=== PATIENT | female | born 1990 | race Caucasian/White ===

== ENCOUNTER 2016-12-06 17:46 | Emergency (ER) | payer MEDICARE, MEDICAID ==
[2016-12-06 17:58] VITALS: BP 104/69
--- NOTE | 2016-12-06 18:04 | UC ---
Hand/Wrist HPI - History Of Current Complaint Chief Complaint: UCUpperExtremity Stated Complaint: LFT HAND PAIN Hx Obtained From: Patient Hx Last Menstrual Period: 11/20/16 ?: No Onset/Duration: Sudden Onset, Lasting Weeks - 1, Worse Since - down though the hand into the 3rd finger. Severity Initially: Mild Severity Currently: Mild Character Of Pain: Throbbing - stabbing Aggravating Factor(s): Movement, Flexion Alleviating: Nothing Associated Signs And Symptoms: Positive: Swelling - at the kauffman base of the 3rd finger. Related History: Dominant Hand Right - Allergies/Home Medications Allergies/Adverse Reactions: Allergies Allergy/AdvReac Type Severity Reaction Status Date / Time Latex Allergy Blisters Verified 12/06/16 17:51 Gadoteridol AdvReac Nausea And Verified 12/06/16 17:51 Vomiting Home Medications: Home Medications Diclofenac Sodium EC TAB* [Voltaren EC TAB*] 75 mg PO BID PRN 12/06/16 [History Confirmed 12/06/16] PMH/Surg Hx/FS Hx/Imm Hx Psychological History: Anxiety Other History Of: Hepatitis C - Surgical History Surgical History: Yes Surgery Procedure, Year, and Place: D&C 02/2013 - Family History Known Family History: Negative: Cardiac Disease, Hypertension, Diabetes - Social History Occupation: Unemployed Lives: Alone - with BF Alcohol Use: Rare Alcohol Amount: 1 drink/month Substance Use Type: None Substance Use Comment - Amount & Last Used: opiates and benzo found in urine drug screen- pt denies today. Smoking Status (MU): Heavy Every Day Tobacco Smoker Type: Cigarettes Amount Used/How Often: 1 pack daily When Did the Patient Quit Smoking/Using Tobacco: 2007 Cessation Counseling: Patient Advised to Stop - Immunization History Most Recent Influenza Vaccination: unknown Most Recent Tetanus Shot: unknown Most Recent Pneumonia Vaccination: unknown Review of Systems Musculoskeletal: Arthralgia - left wrist into the hand All Other Systems Reviewed And Are Negative: Yes Physical Exam Triage Information Reviewed: Yes Appearance: Well-Appearing, No Pain Distress, Well-Nourished Vital Signs: Initial Vital Signs Temp 98 F 12/06/16 17:53 Pulse 74 12/06/16 17:53 Resp 16 12/06/16 17:53 BP 104/69 12/06/16 17:53 Pulse Ox 99 12/06/16 17:53 Vital Signs Reviewed: Yes Eyes: Positive: Conjunctiva Clear ENT Exam: Normal Neck exam: Normal Respiratory Exam: Normal Cardiovascular Exam: Normal Musculoskeletal: Positive: ROM Intact, Strength Limited @ - pick and shovel man left hand, Other: - Tenderness with swelling 3rd and 4th volar fingers over the MCPs Neurological: Positive: Other: - Hypersensitive to pinprick over the 3rd and 4th volar fingers and Psychological Exam: Normal Skin Exam: Normal Hand/Wrist Course/Dx - Differential Dx/Diagnosis Differential Diagnosis/HQI/PQRI: Bursitis, Sprain, Strain, Tendonitis Provider Diagnoses: Neuritis/ neuralgia Discharge - Discharge Plan Condition: Stable Disposition: HOME Patient Education Materials: Paresthesia (ED) Additional Instructions: It appears to be a nerve irritation in the hand. This should resolve spontaneously. Please avoid doing anything that makes the pain worse. Use the pamela wrap to remind you to not use the hand.
== END 2016-12-06 18:36 | disposition home or self-care (01) ==
LOC: UCCORT 17:46
DX: M79.2 Neuralgia and neuritis, unspecified (principal); F17.210 Nicotine dependence, cigarettes, uncomplicated
CPT/HCPCS: 99211; G0463

== ENCOUNTER 2018-01-26 11:14 | Emergency (ER) | payer MEDICARE, MEDICAID ==
[2018-01-26 11:48] VITALS: BP 102/63
--- NOTE | 2018-01-26 13:07 | UC ---
UC General HPI - HPI Summary HPI Summary: pt is c/o pain to the sides of her lower back and bladder discomfort/pressure. she admits to frequent-urgent urination but denies any burning or odor to her urine. this began about 1 week ago but is worsening since last pm. she denies and fever, v/d and vaginal d/c plus risk/concern for pelvic infection. did have a large L ovarian cyst removed by Dr Poole 3-4 months ago. - History of Current Complaint Chief Complaint: UCGU Stated Complaint: BILATERAL SIDE PAIN Time Seen by Provider: 01/26/18 12:28 Hx Obtained From: Patient Hx Last Menstrual Period: 01/18/18 Onset/Duration: Gradual Onset Timing: Constant Pain Intensity: 7 Aggravating: movement Associated Signs & Symptoms: Positive: Abdominal Pain, Back Pain. Negative: Diarrhea, Fever, Vomiting - Allergy/Home Medications Allergies/Adverse Reactions: Allergies Allergy/AdvReac Type Severity Reaction Status Date / Time gadoteridol Allergy Nausea And Verified 01/26/18 11:43 Vomiting latex Allergy Blisters Verified 01/26/18 11:43 Home Medications: Home Medications Acetaminophen [Tylenol Extra Strength] 1,000 mg PO ONCE 01/26/18 [History Confirmed 01/26/18] busPIRone TAB* [Buspar TAB*] 5 mg PO BID PRN 01/26/18 [History Confirmed ] PMH/Surg Hx/FS Hx/Imm Hx - Additional Past Medical History Additional PMH: large L ovarian cyst-removed, pituitary tumor. 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 Lives: With Family Alcohol Use: Occasionally Alcohol Amount: 1 drink/month Substance Use Type: None Substance Use Comment - Amount & Last Used: history of heroin abuse Smoking Status (MU): Heavy Every Day Tobacco Smoker Type: Cigarettes Amount Used/How Often: 1 pack daily When Did the Patient Quit Smoking/Using Tobacco: 2007 - Immunization History Most Recent Influenza Vaccination: unknown Most Recent Tetanus Shot: unknown Most Recent Pneumonia Vaccination: unknown Vaccination Up to Date: Yes Review of Systems Constitutional: Negative Skin: Negative Eyes: Negative ENT: Negative Respiratory: Negative Cardiovascular: Negative Gastrointestinal: Abdominal Pain Genitourinary: Frequency, Urgency Motor: Negative Neurovascular: Negative Musculoskeletal: Other: - low back pain Neurological: Negative Psychological: Negative Is Patient Immunocompromised?: No All Other Systems Reviewed And Are Negative: Yes Physical Exam Triage Information Reviewed: Yes Appearance: Well-Appearing Vital Signs: Initial Vital Signs Temp 98.1 F 01/26/18 11:40 Pulse 70 01/26/18 11:40 Resp 18 01/26/18 11:40 BP 102/63 01/26/18 11:40 Pulse Ox 100 01/26/18 11:40 Vital Signs Reviewed: Yes Eyes: Positive: Conjunctiva Clear ENT: Positive: Normal ENT inspection Neck: Positive: Supple, Nontender, No Lymphadenopathy Respiratory: Positive: Lungs clear, Normal breath sounds Cardiovascular: Positive: RRR, No Murmur Abdomen Description: Positive: Other: - Flat, + BS, soft, No mass or HSM appreciated. Tender with guarding to suprapubic and L lower abdomen. Musculoskeletal: Positive: ROM Intact Neurological: Positive: Alert Psychological: Positive: Age Appropriate Behavior Skin Exam: Normal Diagnostics - Laboratory Diagnostic Studies Completed/Ordered: u/a= 1+ leukocytes and + nitrites. HCG= negative Course/Dx - Course Course Of Treatment: no CVA tenderness or fever to suggest pyelonephritis. u/a has leukocytes and nitires to suggest UTI; however, the abdominal exam is not c/ w basic UTI thus pt transfer to ER for additonal evaluation. [facility] ER called, spoke to Nilda Acosta .NET PROGRAMMER, advised of uti but also lower abdominal pain with guarding. also advised of hx large L ovarian cyst removal 3-[address] Poole. - Differential Dx - Multi-Symptom Provider Diagnoses: Lower abdominal pain. UTI. Discharge - Sign-Out/Discharge Documenting (check all that apply): Patient Departure - Discharge Plan Condition: Stable Disposition: TRANS HIGHER LVL OF CARE FAC Referrals: Ana Stewart PA [Primary Care Provider] - Additional Instructions: LEAVE HERE AND GO DIRECTLY TO THE [facility] ER DISCUSSED. DO NOT EAT OR DRINK. - Billing Disposition and Condition Condition: STABLE Disposition: Trans Higher Lvl of Care Fac
--- NOTE | 2018-01-28 09:08 | UC ---
- Progress Note Progress Note: + e. Coli Pt on Macrobid await culture no change Ljj 01/28/2018 Discharge - Sign-Out/Discharge Documenting (check all that apply): Post-Discharge Follow Up - Discharge Plan Condition: Stable Disposition: TRANS HIGHER LVL OF CARE FAC Referrals: Ana Stewart PA [Primary Care Provider] - Additional Instructions: LEAVE HERE AND GO DIRECTLY TO THE [facility] ER DISCUSSED. DO NOT EAT OR DRINK. - Billing Disposition and Condition Condition: STABLE Disposition: Trans Higher Lvl of Care Fac
--- NOTE | 2018-01-28 11:29 | UC ---
- Progress Note Progress Note: + E coli sensitive to macrobid Pt on macrobid per [facility] following transfer to ED no change in management Magno 01/28/2018 Discharge - Sign-Out/Discharge Documenting (check all that apply): Post-Discharge Follow Up - Discharge Plan Condition: Stable Disposition: TRANS HIGHER LVL OF CARE FAC Referrals: Ana Stewart PA [Primary Care Provider] - Additional Instructions: LEAVE HERE AND GO DIRECTLY TO THE [facility] ER DISCUSSED. DO NOT EAT OR DRINK. - Billing Disposition and Condition Condition: STABLE Disposition: Trans Higher Lvl of Care Fac
== END 2018-01-26 13:02 | disposition short-term general hospital (02) ==
LOC: UCCORT 11:14
DX: R10.30 Lower abdominal pain, unspecified (principal); N39.0 Urinary tract infection, site not specified; B96.20 Unspecified Escherichia coli [E. coli] as the cause of diseases classified elsewhere; F17.210 Nicotine dependence, cigarettes, uncomplicated; F41.9 Anxiety disorder, unspecified
CPT/HCPCS: 81003; 84702; 87077; 87086; 87186; 99212; G0463

== ENCOUNTER 2018-10-18 07:44 | Inpatient (IN) | payer MEDICARE, MEDICAID ==
[2018-10-18] MEDS ORDERED: Buffered Lidocaine 1% SYRIN* 1 ML/SYRINGE INTRADERM ONE (09:03)
[2018-10-18] MEDS ORDERED: Lactated Ringers 1000 ML Bag* 1,000 ML IV ONE (09:03)
[2018-10-18] MEDS ORDERED: Misoprostol TAB* 100 MCG PO ONE ×2 (09:03→14:20)
[2018-10-18] MEDS ORDERED: Nicotine GUM* 2 MG PO PRN (09:10)
--- NOTE | 2018-10-18 09:31 | HP ---
General Information - Reason for Visit IOL for Proteinuria - General Information Maternal Age: 27 Grav: 4 Para: 1 SAB: 2 IEA: 0 Estimated Due Date: 10/25/18 Determined By: LMP Maternal Blood Type and Rh: O Positive - Results this Serology/RPR Result: Non-Reactive Rubella Result: Non-Immune HBsAg Result: Negative HIV Result: Negative GBS Culture Result: Negative Past Medical History Delivery History: Hx Uncomplicated Vaginal Delivery Pertinent Past Medical History: See Records Past Medical History Comment: History substance abuse, negative toxicology screen this . Not on medication Depression - no current meds, celexa in past Anxiety - using hydroxyzine prn Migraine Schizophrenia PTSD Pertinent Past Surgical History: See Records Past Surgical History Comment: Laparascopic ovarian cystectomy - 2018 D&C- 2012 [place] Tooth Extraction Pertinent Family History: Non-Contributory - Antepartal Records Antepartal Records: Reviewed, Complicated by: - Proteinuria Review of Systems Constitutional: Uncomfortable CV Complaint: No Respiratory: Shortness of Breath: No Gastrointestinal: Nausea, Vomiting, Soft Stool Genitourinary: No Dysuria, No Bleeding, No Leaking Fluid Musculoskeletal: Abdominal Pain, Pressure Neurological: No Headache, Blurred Vission - yesterday Movement: Normal Exam Allergies/Adverse Reactions: Allergies gadoteridol Allergy (Verified 09/26/18 19:36) Nausea And Vomiting latex Allergy (Verified 09/26/18 19:36) Blisters B/P: 105/66, P: 89, R: 20, T: 97.9 - Measurements Pre- Weight: 150 lb - Exam Breast: Breast Exam Deferred CVA: No CVA Tenderness Extremities: No Edema Heart: Normal Rhythm/Heart Sounds HEENT: No Significant Findings Lungs: Clear Bilaterally Thyroid: No Thyromegaly - Abdominal Exam Abdomen Exam: Non-Tender, Fundal Height Consistent with Dates - Ultrasound/Biophysical Profile Ultrasound Status: Not Done Targeted Exam Findings See L&D Outpatient Visit Provider Note for Findings: N/A Estimated Weight: 9 lb by kingsley'martina Cervical Exam: Fingertip Effacement: Thick Station: -2 Presenting Part: Vertex Membrane Status: Intact Bleeding/Discharge: None EFM Findings - External Monitor Findings Baseline Heart Rate: 135 External Monitor Findings: Accelerations Present, No Pattern of Variable or Late Decelerations, Variability Moderate, Baseline Stable Contractions: None Assessment/Plan - Assessment A: IUP at 39 0/7 weeks Category I FHR GBS negative Franco Score: 4 P: Admit to inpatient Cervical ripening with oral cytotec Reassess in 3-4 hrs or sooner as indicated Anticipate SVB - Obstetrical Risk Factors Obstetrical Risk Factors: Proteinuria, Tobacco Use, Psychiatric Issues - Plan Plan: Cervical Ripening, Admit - Anticipate Vaginal Delivery - Date/Time of Admission Date of Admission: 10/18/18 Time of Admission: 08:00
[2018-10-18] MEDS ORDERED: Lactated Ringers 1000 ML Bag* 1,000 ML IV SCH (10:00)
[2018-10-18] MEDS: Nicotine PATCH 14 MG/24 HR* PATCH TRANSDERM SCH (10:30)
--- NOTE | 2018-10-18 14:28 | PN ---
Progress Note - Progress Note Date of Service: 10/18/18 Note: S: Brittnee in left lateral position on bed, states she can feel UCs but they are mild and tolerable. Reports aching in her hips and back, uncomfortable changing positions O: B/P: 117/74, P: 90, R: 20, T: 97.8 FHR: baseline 125, moderate variability, +accelerations, no decelerations UCs: q8-10 minutes, irregular, mild VE: fingertip, thick/soft, posterior. Membranes intact A: IUP at 39 weeks Category I FHR Cervix unripe P: Will do another PO cytotec Discussed her getting in the tub to see if it makes her back and hips feel better Reassess in 3-4 hrs or sooner as needed
[2018-10-18] MEDS ORDERED: Dinoprostone* 10 MG VAG.SUPP VAGINAL ONE (19:10)
--- NOTE | 2018-10-18 19:26 | PN ---
Progress Note - Progress Note Date of Service: 10/18/18 SOAP: Subjective: Pt reports that she feels some ctx now, but that they are still relatively mild and intermittent. Does report continued hip and low back pain. Denies headache. Denies vision changes. Objective: Cervix: fingertip/ 50%/ posterior Franco Score = 3 FHR: baseline 130/ + accels/ no decels/ moderate variability UCs: Every 10 minutes Assessment: Cervix slightly more favorable than at previous assessment, but still not favorable for Pitocin. No evidence of acidemia. Plan: Discussed options for proceeding with pt. Given that she has had two doses of misoprostol with minimal effect, it seems reasonable to try Cervidil. Pt in agreement with plan, although she would like to walk and rest in room uninterrupted for a little while before placing. Will consider sleep aid or pain relief overnight if needed.
--- NOTE | 2018-10-18 20:52 | PN ---
Progress Note - Progress Note Date of Service: 10/18/18 Note: Pt has stated history of pituitary adenoma. Attempted to obtain neurology consult for pt during but was unable to obtain, although she has an appt scheduled in November. Pt reports diagnosed at age 18, states it has remained stable in size, and was diagnosed prior to her first during which she had an epidural without complication. I spoke with anesthesiologist Dr. Zhang who requested I consult with neurology prior to consideration of pt's candidacy for epidural placement should she request it during her labor. 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 Spoke with welder production line combination neurologist Dr. Valdez, and reviewed the pt's stated history of pituitary adenoma as well as migraine headaches, and read the report from the above-referenced MRI. Per Dr. Valdez, in the absence of neurological deficits such as vision changes such as hemianopeia or severe headaches, there is no contraindication whatsoever to the pt receiving epidural analgesia in labor. He states he would be happy to discuss further should it be necessary.
[2018-10-18] MEDS: Acetaminophen TAB* 325 MG PO PRN (21:36)
[2018-10-18] MEDS: diPHENhydraMINE PO* 50 MG PO PRN (21:36)
[2018-10-19 06:51] LABS: ABS Basophils 0 10^3/ul (0-0.2); ABS Eosinophils 0.1 10^3/ul (0-0.6); ABS Lymphocytes 2.2 10^3/ul (1.0-4.8); ABS Monocytes 0.8 10^3/ul (0-0.8); ABS Neutrophils 6.3 10^3/ul (1.5-7.7); ABS Nucleated RBC 0 10^3/ul; Eosinophil % 1.4 %; Hematocrit 37 % (33-41); Hemoglobin 12.1 g/dL (12.0-16.0); Lymphocyte % 23.5 %; Mean Corpuscular HGB Conc 33 g/dL (31-36); Mean Corpuscular Hemoglobin 26 pg (27-31); Mean Corpuscular Volume 79 fL (80-97); Mean Platelet Volume 8.8 fL (7.4-10.4); Nucleated Red Blood Cells % 0; Platelet Count 183 10^3/uL (150-450); Red Blood Count 4.68 10^6 /uL (3.70-4.87); Red Cell Distribution Width 14 % (10.5-15); White Blood Count 9.4 10^3/uL (3.5-10.8)
[2018-10-19 07:03] LABS: Albumin 3.3 g/dL (3.2-5.2); Albumin/Globulin Ratio 1.3 (1-3); Calcium 8.8 mg/dL (8.6-10.3); EGFR African American 181.9 (>60); EGFR Non-African American 150.3 (>60); Globulin 2.5 g/dL (2-4); Potassium 3.9 mmol/L (3.5-5.0); Total Bilirubin 0.3 mg/dL (0.2-1.0); Total Protein 5.8 g/dL (6.4-8.9); Uric Acid 2.7 mg/dL (2.3-6.6)
[2018-10-19] MEDS: Nicotine Patch Removal NOTE FOLLOW UP SCH (08:40)
[2018-10-19] MEDS: Nicotine PATCH 14 MG/24 HR* PATCH TRANSDERM SCH (08:41)
--- NOTE | 2018-10-19 08:48 | PN ---
Progress Note - Progress Note Date of Service: 10/19/18 Note: S: Brittnee is just waking up, reports she got some sleep last night but has been feeling pressure in her pelvis. Some relief in tub last night but only for first 15 minutes. O: B/P: 102/59, P: 79, R: 17, T: 97.8 FHR: baseline 130, moderate variability, +accelerations, no decelerations UCs: q5-8 min, mild VE: FT/thick/posterior A: IUP at 39 1/7 weeks Category I FHR Franco Score: 3-4 P: Will leave cervidil in place, pt to eat breakfast Discussed vaginal irritation from cervidil, offered tucks or lidocaine gel - pt declines Offered heat packs for sore hips/back, pt declined at first but then accepted Re-assess in 2-4 hrs or sooner PRN
[2018-10-19] MEDS ORDERED: Misoprostol TAB* 100 MCG PO ONE ×3 (10:01→19:55)
--- NOTE | 2018-10-19 10:10 | PN ---
Progress Note - Progress Note Date of Service: 10/19/18 Note: Quick note: Spoke with Brittnee about plan of care now that she is feeling fully awake. She would like to trial another dose of oral misoprostol as she finds the Cervidil uncomfortable. She is also interested in having her saline lock removed, understands she will likely end up with another IV and accepting of this. She will remove her Cervidil after she finishes breakfast and then we will switch to 25 mcg misoprostol PO.
[2018-10-19] MEDS: Acetaminophen TAB* 325 MG PO PRN ×2 (12:20→23:02)
--- NOTE | 2018-10-19 15:23 | PN ---
Progress Note - Progress Note Date of Service: 10/19/18 Note: S: right side-lying position, feeling UCs but states they are milder and seem to have spaced out some. Still uncomfortable moving around in bed. O: B/P: 100/61, P: 91, R: 18, T: 99.0 FHR: baseline 145, moderate variability, +accelerations, no decelerations UCs: q8-10 mins, mild VE: 1/50/-2 A: IUP at 39 1/7 weeks Category I FHR Franco Score: 5 P: Repeat dose of sublingual misoprostol Reassess in 3-4 hrs or sooner as needed Anticipate SVB
--- NOTE | 2018-10-19 18:09 | PN ---
Progress Note - Progress Note Date of Service: 10/19/18 Note: S: Reports increased vaginal pressure with UCs, pt breathing heavily through contractions O: FHR baseline 105-110, moderate variability, +accelerations, no decelerations. Lots of movement UCs: q 4-6 minutes, moderate to palpation VE: 50/-2, intact A: IUP at 39 1/7 weeks Category I FHR - baseline change P: will continue to monitor FHR and contraction pattern reassess in 2 hours or sooner PRN
--- NOTE | 2018-10-19 20:00 | PN ---
Progress Note - Progress Note Date of Service: 10/19/18 Note: S: Lying in bed, reports everything is painful O: B/P: 118/67, P: 73, R: 18, T: 98.2 FHR: Baseline 120, moderate variability, + accelerations, no decelerations UCs: q3-9 minutes, irregular, mild-moderate VE deferred per pt preference A: IUP at 39 1/7 weeks Category I FHR, no evidence of metabolic acidemia P: Discussed options for moving forward with ripening: Misoprostol vs cervidil vs paula bulb vs trial of pitocin. Pt declines all except misoprostol at this time. Repeat oral misoprostol 25 mcg (third dose today, fifth total dose) Reassess in 3-4 hrs or sooner as indicated
[2018-10-20] MEDS ORDERED: Promethazine INJ(RESTRICTED)* 25 MG/ML 1 ML VIAL IM ONE
[2018-10-20] MEDS ORDERED: Nalbuphine* 10 MG/ML 1 ML VIAL IM PRN (00:08)
--- NOTE | 2018-10-20 00:14 | PN ---
Progress Note - Progress Note Date of Service: 10/20/18 Note: S: Reports she hasn't noticed UCs the last hour. Lying right side-lying O: B/P: 93/52, P: 73, R: 19, T: 98.2 FHR: baseline 120, moderate variability, + accelerations, no decelerations UCs: no UCs by toco VE: deferred A: IUP at 39 2/7 weeks Category I FHR GBS Negative P: Offered pt option of sixth dose misoprostol vs cervidil vs therapeutic rest Brittnee opts to rest and re-evaluate in morning. Requests Benadryl for sleep , has option for Nubain/phenergan IM if she desires Reassess in am or sooner as needed
[2018-10-20] MEDS: diPHENhydraMINE PO* 50 MG PO PRN (00:15)
[2018-10-20] MEDS: Nicotine Patch Removal NOTE FOLLOW UP SCH ×2 (04:52→22:33)
--- NOTE | 2018-10-20 09:52 | PN ---
Progress Note - Progress Note Date of Service: 10/20/18 Note: Subjective: Pt reports she has not felt contractions since 3am. Feeling irritable, asking for nicotine patch. Denies RUBIN, vision changes, epigastric pain, edema. Objective: Cervix: 1cm/ 30%/-2, soft, posterior Franco Score = 4, unfavorable FHR: baseline 115/moderate variability, periods of marked variability UCs: uterine irritability Assessment: BP stable, afebrile Cervix slightly more favorable than at previous assessment, but still not favorable for Pitocin. No evidence of acidemia. Plan: Discussed options for proceeding with pt. Discussed risks vs benefits of cervidil vs misoprostol. Pt was uncomfortable with cervidil and would like to try misoprostol again. Anticipate progression to active labor
[2018-10-20] MEDS: Nicotine PATCH 14 MG/24 HR* PATCH TRANSDERM SCH (10:32)
[2018-10-20] MEDS: Misoprostol TAB* 100 MCG PO SCH ×3 (10:36→22:45)
--- NOTE | 2018-10-20 14:16 | PN ---
Progress Note - Progress Note Date of Service: 10/20/18 Note: Subjective: Pt was given misoprostol, 50mcg at 1030am. Pt is sleeping soundly. Objective: VS, FHR reported with last note Assessment: Cervical exam deferred Pt comfortable Plan: Repeat next dose of misoprostol Anticipate progression to active labor
[2018-10-20] MEDS ORDERED: Lidocaine 2% JELLY* 6 ML JELLY TOPICAL ONE (15:43)
--- NOTE | 2018-10-20 16:18 | PN ---
Progress Note - Progress Note Date of Service: 10/20/18 Note: ubjective: Pt is out of bed playing video game with SO. Not feeling contractions. Denies RUBIN , vision changes, epigastric pain. Objective: FHR:120, moderate to marked variability Ctx: irritability Assessment: Cervical exam deferred No evidence of acidemia Pt comfortable Plan: PARQ discussion about cervical ripening balloon. Pt would like to try. Will order lidocaine to help ease insertion Anticipate progression to active labor
--- NOTE | 2018-10-20 16:48 | PN ---
Progress Note - Progress Note Date of Service: 10/20/18 Note: Assessed pt for placement of Cooks catheter. Cx 1cm, posterior. Catheter threaded through cervix and balloon inflated with 50ml saline. placement confirmed and external balloon filled with 30ml saline. Pt tolerated the procedure well.
--- NOTE | 2018-10-20 18:41 | PN ---
Progress Note - Progress Note Date of Service: 10/20/18 Note: Subjective: Pt is feeling mild contractions. Objective: FHR: indeterminate baseline, moderate to marked variability Ctx: irritability Assessment: Cervical exam deferred Cook paula in place No evidence of acidemia Pt comfortable Plan: Pt tolerating cook paula balloon well VE prn Anticipate progression to
[2018-10-20] MEDS ORDERED: Promethazine INJ(RESTRICTED)* 25 MG/ML 1 ML VIAL IM PRN (20:37)
--- NOTE | 2018-10-20 20:50 | PN ---
Progress Note - Progress Note Date of Service: 10/20/18 Note: Subjective: Pt is uncomfortable with contractions. Objective: VE: unable to reach cervix d/t cook catheter firmly in place FHR: 115, +accels, no decels, periods of marked variability - otherwise moderate variability Ctx: q2-4mins Assessment: Cook catheter in place No evidence of acidemia Plan: Consider IM pain medication Pt tolerating cook paula balloon well VE prn Anticipate progression to
[2018-10-20] MEDS ORDERED: Nalbuphine* 10 MG/ML 1 ML VIAL IV PRN (21:49)
[2018-10-20] MEDS ORDERED: Promethazine INJ(RESTRICTED)* 25 MG/ML 1 ML VIAL IV SCH (22:00)
[2018-10-21] MEDS ORDERED: Lidocaine 1%* 5 ML VIAL ONE (03:05)
--- NOTE | 2018-10-21 03:57 | PN ---
Progress Note - Progress Note Date of Service: 10/21/18 Note: Subjective: Called to bedside by RN for low baseline. Per RN, pt reported feeling uncomfortable, this prompted RN to resume continuous monitoring. When I arrived pt was in left lateral, RN hanging IV fluids and applying O2. Jax Romero (LMB) MD called to bedside to review FHT. Objective: VE: d/c cook catheter; 1cm/70%/-2, bloody show Bedside US completed by LMB. +FCA, active movement FHR: baseline 100-110, occasional variable decel, moderate variability. Following interventions, baseline 115, +accels, no decels, moderate variability. Ctx: occasional Assessment: IV fluids infusing 10L of O2 flowing via face mask Pt remains in left lateral No evidence of acidemia Plan: Continuos monitoring of FHR and contractions Consider trial of Pitocin in the AM. VE prn Anticipate progression to active labor
[2018-10-21] MEDS: Misoprostol TAB* 100 MCG PO SCH (07:28)
--- NOTE | 2018-10-21 08:03 | PN ---
Progress Note - Progress Note Date of Service: 10/21/18 Note: Called to evaluate patient and heart strip around 3:15am. She was placed on the monitor and baseline was 100-110 with moderate variability, no accels, no decels. She had a cook catheter in place that had been removed due to discomfort by the curtain stitcher. She had received nubain and phenergan about 5hrs prior. Pain improved s/p removal of catheter. Very minimal bloody show. No LOF. On evaluation of her FHT, her baseline had been 115-120 throughout the day with good variability and accels. Bedside sono was done and baby quickly had lots of movement. Placenta appeared normal. heart monitor was started again and baseline was now 115-120 with accels. Reassured pt and will continue to monitor overnight and re-eval in the am.
--- NOTE | 2018-10-21 10:43 | PN ---
Progress Note - Progress Note Date of Service: 10/21/18 Note: S: Still feeling achey through hips, reports charley horse in her left thigh. Feeling some UCs "but not as many as last night" O: B/P: 85/49, P: 75, R: 18, T: 97.8 FHR: baseline 120, moderate variability, +accelerations, no decelerations UCs: irregular. No UCs by toco but one palpated in 20 minutes while at bedside VE: 1 cm/thick/-2, membranes intact A: IUP at 39 3/7 weeks Category I FHR Not in labor P: Discussed pitocin augmentation, pt hesitant to move forward at this time and asking about other options Offered to consult about discharge for now and follow-up in the office, pt interested as long as not too risky Discussed there is never a 100% guarantee of no risk, but baby's BPP last night was reassuring and both she and baby are stable at this time Plan to discharge to home, to follow-up in office 10/22 or 10/25
--- NOTE | 2018-10-25 17:25 | DS ---
Patient is a 27 year old who presented for term induction of labor for proteinuria unaccompanied by other symptoms. She was admitted 10/18/2018 and received six doses of misoprostol for cervical ripening, as well as a cervidil/dinoprostone vaginal insert and attempt at ripening with Cook uterine/vaginal balloon. Her blood pressure readings had all been normal and her CBC, CMP, and uric acid results were unremarkable. She denied neurologic symptoms but did report occasional headache which had been present throughout the majority of her . Headache was relieved with PO tylenol. On cervical exam done 10/21/2018 she was 1 cm, 50% effaced, vertex -2 station and membranes intact. There had been little change to her cervix over the last 40 hours. She had received a bedside ultrasound overnight and findings indicated wellbeing ( movements, tone, breathing movements, normal JIMMY, normal appearance of the placenta) A trial of IV pitocin for labor induction was discussed with the patient however she requested to go home and await spontaneous labor. After discussion with my consulting bankruptcy attorney, it was determined she could be discharged to home with follow up in the office 10/22/2018. She has been rescheduled for repeat induction of labor on 10/26/2018 at 1200. She was discharged to home at 1130 on at 39 and 3/7 weeks gestation following a reactive non-stress test and heart tracing with normal baseline.
== END 2018-10-21 11:05 | disposition home or self-care (01) | DRG 833 ==
LOC: MCHOBOUT 07:44 → MCHOB 09:21
PROVIDERS: ADMIT Midwife; ATTEND Midwife
PROC: 3E033VJ Introduction of Other Hormone into Peripheral Vein, Percutaneous Approach (ICD-10-PCS; principal; 2018-10-18)
DX: O12.13 Gestational proteinuria, third trimester (principal); O61.0 Failed medical induction of labor; Z3A.39 39 weeks gestation of pregnancy; O99.343 Other mental disorders complicating pregnancy, third trimester; F41.9 Anxiety disorder, unspecified; F20.9 Schizophrenia, unspecified; F43.10 Post-traumatic stress disorder, unspecified; G43.909 Migraine, unspecified, not intractable, without status migrainosus; F32.9 Major depressive disorder, single episode, unspecified
CPT/HCPCS: 36415; 80053; 84550; 85025; 86850; 86900; 86901; A9270-GY; J2300; J2550; S0191

== ENCOUNTER 2018-10-26 08:42 | Inpatient (IN) | payer MEDICARE, MEDICAID ==
[2018-10-26] MEDS ORDERED: Lactated Ringers 1000 ML Bag* 1,000 ML IV ONE ×2 (10:11→15:15)
[2018-10-26] MEDS ORDERED: Buffered Lidocaine 1% SYRIN* 1 ML/SYRINGE INTRADERM ONE (10:11)
--- NOTE | 2018-10-26 10:19 | HP ---
General Information - Reason for Visit Term for induction/augmentation of labor. - General Information Maternal Age: 27 Grav: 4 Para: 1 SAB: 2 IEA: 0 Estimated Due Date: 10/25/18 Determined By: LMP Maternal Blood Type and Rh: O Positive - Results this Serology/RPR Result: Non-Reactive Rubella Result: Non-Immune HBsAg Result: Negative HIV Result: Negative GBS Culture Result: Negative Past Medical History Delivery History: Hx Uncomplicated Vaginal Delivery - 08/2015 Pertinent Past Medical History: See Records Past Medical History Comment: Depression Anxiety Migraine Schizophrenia PTSD Pituitary adenoma: questionable? Neuro consult notes possibly a cyst instead. Pertinent Past Surgical History: See Records Past Surgical History Comment: Lap ovarian cystectomy (left) 2018 D&C 2013 [place] tooth extraction Pertinent Family History: Non-Contributory Family History Comment: Breast Ca HTN Liver dz - Antepartal Records Antepartal Records: Reviewed, Complicated by: - Hx heroin addiction, proteinuria without elevated BPs, mental health hx Review of Systems Constitutional: Uncomfortable CV Complaint: No Respiratory: Shortness of Breath: No Gastrointestinal: Normal Bowel Movement, Nausea Genitourinary: No Dysuria, No Bleeding, No Leaking Fluid Musculoskeletal: Contractions Neurological: No Headache, No Visual Changes Movement: Normal Exam Allergies/Adverse Reactions: Allergies gadoteridol Allergy (Verified 10/26/18 09:07) Nausea And Vomiting latex Allergy (Verified 10/26/18 09:07) Blisters BP 109/65 T 97.2 HR 94 RR 18 O2 98% - Measurements Height: 5 ft 6 in Weight: 188 lb Body Mass Index (BMI): 30.3 Pre- Weight: 150 lb - Exam Breast: Breast Exam Deferred CVA: No CVA Tenderness Extremities: No Edema Heart: Normal Rhythm/Heart Sounds HEENT: No Significant Findings Lungs: Clear Bilaterally Rectal: Rectal Exam Deferred Reflexes: DTR 2+, - - no clonus Thyroid: No Thyromegaly - Abdominal Exam Abdomen Exam: Non-Tender, Fundal Height Consistent with Dates - Ultrasound/Biophysical Profile Ultrasound Status: Not Done Targeted Exam Findings See L&D Outpatient Visit Provider Note for Findings: Yes Estimated Weight: 8.5-9lb Cervical Exam: 3cm Effacement: 70% Station: -2 Presenting Part: Vertex Membrane Status: Intact Bleeding/Discharge: None EFM Findings - External Monitor Findings Baseline Heart Rate: 125 External Monitor Findings: Accelerations Present, No Pattern of Variable or Late Decelerations, Variability Moderate Contractions: Irregular, Moderate Contraction Frequency: 7-15 min Assessment/Plan - Assessment IUP @ 40+1 weeks gestation for induction of labor for ongoing proteinuria without elevated BPs. S/P failed induction @ 39 weeks. - Obstetrical Risk Factors Obstetrical Risk Factors: Proteinuria - Plan Plan: Induction, Admit - Anticipate Vaginal Delivery Plan Comment: Admit to L&D. Initiate IV and labs as patient will desire epidural. PARQ discussion low dose pitocin for augmentation of irregular contraction pattern. Patients in agreement. Anticipate SVB. - Date/Time of Admission Date of Admission: 10/26/18 Time of Admission: 09:48
[2018-10-26 10:26] LABS: Hematocrit 36 % (35-47); Hemoglobin 11.9 g/dL (12.0-16.0); Mean Corpuscular HGB Conc 33 g/dL (31-36); Mean Corpuscular Hemoglobin 26 pg (27-31); Mean Corpuscular Volume 78 fL (80-97); Mean Platelet Volume 8.7 fL (7.4-10.4); Platelet Count 190 10^3/uL (150-450); Red Blood Count 4.61 10^6 /uL (3.70-4.87); Red Cell Distribution Width 14 % (10.5-15); White Blood Count 11.3 10^3/uL (3.5-10.8)
[2018-10-26 10:38] LABS: Urine Appearance Cloudy; Urine Bacteria Absent (Absent); Urine Bilirubin Negative (Negative); Urine Blood Negative (Negative); Urine Color Yellow; Urine Glucose Negative (Negative); Urine Ketones Negative (Negative); Urine Nitrite Negative (Negative); Urine Protein Negative (Negative); Urine Red Blood Cell Trace(0-2/hpf) (Absent); Urine Specific Gravity 1.014 (1.010-1.030); Urine Squamous Epithelial Cell Present (Absent); Urine Urobilinogen Negative (Negative); Urine White Blood Cell Trace(0-5/hpf) (Absent)
[2018-10-26 10:41] LABS: ALT 6 U/L (7-52); Albumin 3.3 g/dL (3.2-5.2); Albumin/Globulin Ratio 1.2 (1-3); Alkaline Phosphatase 153 U/L (34-104); Blood Urea Nitrogen 8 mg/dL (6-24); CO2 Carbon Dioxide 22 mmol/L (22-32); Calcium 8.8 mg/dL (8.6-10.3); Chloride 106 mmol/L (101-111); EGFR African American 195.4 (>60); EGFR Non-African American 161.5 (>60); Globulin 2.7 g/dL (2-4); Glucose 76 mg/dL (70-100); Sodium 134 mmol/L (135-145)
[2018-10-26 10:52] LABS: Anion Gap 6 mmol/L (2-11)
[2018-10-26 10:57] LABS: Urine Benzodiazepine Screen None Detected (None Detect); Urine Opiates Screen None Detected (None Detect)
[2018-10-26] MEDS ORDERED: Oxytocin in LR* 20 UNITS/1,000 ML BAG IVPB SCH ×2 (11:00→20:00)
[2018-10-26] MEDS ORDERED: Lactated Ringers 1000 ML Bag* 1,000 ML IV SCH ×4 (11:00→20:00)
[2018-10-26] MEDS ORDERED: OBEPIDURAL* 250 ML EPIDURAL ONE (12:49)
[2018-10-26] MEDS ORDERED: Lidocaine 2% EPI 1:200000 MPF*10-20 ML VIAL ONE (14:18)
--- NOTE | 2018-10-26 15:02 | PN ---
Progress Note - Progress Note Date of Service: 10/26/18 Note: S: Patient now very comfortable with epidural. O: VE deferred UCs Q 2-3 min FHT 125 +accels, no decels, mod sea VSS, afebrile A: IUP @ 40+2 weeks gestation for augmentation of labor Cat 1 FHT Proteinuria P: Will plan to reassess cervical dilation after approx 2 hours or if she is feeling pressure/urge to push. Encourage position changes. Anticipate SVB.
[2018-10-26] MEDS ORDERED: Famotidine TAB* 20 MG PO PRN (15:15)
[2018-10-26] MEDS ORDERED: Lactated Ringers 1000 ML Bag* 500 ML IV PRN ×2 (15:15)
[2018-10-26] MEDS ORDERED: Phenylephrine 40 MCG/ML SYRINGE IV PUSH PRN ×2 (15:15)
[2018-10-26] MEDS ORDERED: Sodium Citrate/Citric Acid* 15 ML UDC PO PRN (15:15)
[2018-10-26] MEDS ORDERED: OBEPIDURAL* 250 ML EPIDURAL SCH (16:00)
[2018-10-26] MEDS: Nicotine PATCH 14 MG/24 HR* PATCH TRANSDERM SCH (17:31)
[2018-10-26] MEDS ORDERED: Dibucaine 1% 28.35 GM TUBE PR PRN (19:12)
[2018-10-26] MEDS ORDERED: Measles, Mumps,Rubella VACC* 0.5 ML/VIAL SUBCUT ONE (19:12)
[2018-10-26] MEDS ORDERED: Witch Hazel PAD* JAR TOPICAL PRN (19:12)
[2018-10-26] MEDS ORDERED: Glycerin ADULT SUPP PR PRN (19:12)
[2018-10-26] MEDS ORDERED: Misoprostol TAB* 200 MCG PR ONE (19:12)
[2018-10-26] MEDS: oxyCODONE/Acetamin 5/325 MG* TAB PO PRN (21:06)
[2018-10-26] MEDS: Ibuprofen TAB* 600 MG PO PRN (21:52)
[2018-10-26] MEDS: Docusate CAP* 100 MG PO SCH (21:53)
[2018-10-27] MEDS: oxyCODONE/Acetamin 5/325 MG* TAB PO PRN (01:49)
[2018-10-27] MEDS: Ibuprofen TAB* 600 MG PO PRN (07:48)
[2018-10-27 08:12] LABS: ABS Basophils 0.1 10^3/ul (0-0.2); ABS Eosinophils 0.1 10^3/ul (0-0.6); ABS Lymphocytes 2.3 10^3/ul (1.0-4.8); ABS Neutrophils 8.8 10^3/ul (1.5-7.7); Eosinophil % 1.1 %; Hematocrit 31 % (35-47); Lymphocyte % 18.7 %; Mean Corpuscular HGB Conc 33 g/dL (31-36); Mean Corpuscular Hemoglobin 25 pg (27-31); Mean Corpuscular Volume 77 fL (80-97); Mean Platelet Volume 8.1 fL (7.4-10.4); Platelet Count 151 10^3/uL (150-450); Red Blood Count 3.97 10^6 /uL (3.70-4.87); Red Cell Distribution Width 14 % (10.5-15); White Blood Count 12.3 10^3/uL (3.5-10.8)
[2018-10-27] MEDS ORDERED: Ferrous Gluconate TAB* 324 MG TAB PO SCH (09:00)
[2018-10-27] MEDS: Docusate CAP* 100 MG PO SCH ×2 (09:34→17:42)
[2018-10-27] MEDS: Nicotine PATCH 14 MG/24 HR* PATCH TRANSDERM SCH ×2 (09:34→12:20)
[2018-10-27] MEDS ORDERED: Nicotine Patch Removal NOTE PATCH OFF SCH (16:08)
[2018-10-27] MEDS: Acetaminophen TAB* 325 MG PO PRN (17:49)
[2018-10-28] MEDS: Ibuprofen TAB* 600 MG PO PRN (00:38)
[2018-10-28] MEDS: Docusate CAP* 100 MG PO SCH (00:38)
[2018-10-28] MEDS: Acetaminophen TAB* 325 MG PO PRN (04:10)
[2018-10-28 10:54] VITALS: BP 110/74
--- NOTE | 2018-11-01 20:22 | PROCNOTE ---
[facility]: Delivery Note - Delivery A Date of : 10/26/18 Time of : 18:17 [place] Sex: Female Weight at : 8 lb 4 oz Score 1 Minute: 9 Score 5 Minutes: 9 Gestational Age in Weeks and Days at Delivery: 40 Weeks and 1 Days Delivery Method: Spontaneous Vaginal Labor: Induced Did Patient attempt ?: N/A, No Previous Amniotic Fluid: Clear Estimated Blood Loss: 450 Anesthesia/Analgesia: CEI for Labor Delivered By: Gisele Dallas - Nursery Level of Nursery: Regular/Bedside - Perineum Perineal Injury: Abrasion Only - Not Repaired Perineal Injury Comment: small perineal and left labial abrasions, hemostatic Perineal Repair: None - Events Delivery Events of Note: Pitocin During Labor, Pitocin Only After Delivery - Risk for Falls Delivered OB Patient- Risk for Falls: Heavy Bleeding Fall Risk: Patient is at High Risk for Falls - Additional Delivery Notes Additional Delivery Notes: Patient admitted for induction of labor due to proteinuria. Low dose pitocin lead to active labor. Patient received epidural as desired. Patient reported urge to push and was found to be complete with baby at perineum. LOL 6'24", pushed 2 min. Baby born OA to WILLIE, shoulders following easily @ 1817. Baby vigorous with spontaneous cry, HR >110. To maternal abdomen, Apgars 9, 9. Cord doubly clamped and cut by FOB once pulsations ceased. Placenta delivered with gentle cord traction @ 1824. Fundus initially firm to massage but then brisker bleeding noted; pitocin initiated and bleeding stopped. Later clots expressed and 800mcg cytotec given NM with good bleeding control. EBL 450ml. Baby at breast to initiate breast feeding. Mother and baby stable. Baby name Svetlana.
== END 2018-10-28 11:46 | disposition home or self-care (01) | DRG 807 ==
LOC: MCHOBOUT 08:42 → MCHOB 09:48
PROVIDERS: ADMIT Midwife; ATTEND Midwife
PROC: 10E0XZZ Delivery of Products of Conception, External Approach (ICD-10-PCS; principal; 2018-10-26)
PROC: 10907ZC Drainage of Amniotic Fluid, Therapeutic from Products of Conception, Via Natural or Artificial Opening (ICD-10-PCS; 2018-10-26)
PROC: 4A1HXCZ Monitoring of Products of Conception, Cardiac Rate, External Approach (ICD-10-PCS; 2018-10-26)
PROC: 3E033VJ Introduction of Other Hormone into Peripheral Vein, Percutaneous Approach (ICD-10-PCS; 2018-10-26)
DX: O12.14 Gestational proteinuria, complicating childbirth (principal); Z37.0 Single live birth; O48.0 Post-term pregnancy; O77.0 Labor and delivery complicated by meconium in amniotic fluid; O71.82 Other specified trauma to perineum and vulva; Z3A.40 40 weeks gestation of pregnancy; Z91.040 Latex allergy status; Z88.8 Allergy status to other drugs, medicaments and biological substances
CPT/HCPCS: 36415; 80053; 80307; 81003; 81015; 85025; 85027; 86850; 86900; 86901; 87086; 90707; 99406; A9270-GY

== ENCOUNTER 2018-11-15 18:55 | Emergency (ER) | payer MEDICARE, MEDICAID ==
[2018-11-15 19:14] VITALS: BP 109/71
--- NOTE | 2018-11-15 19:29 | UC ---
Hand/Wrist HPI - HPI Summary HPI Summary: "I can't straigten my middle finger" on LEFT hand x3 days. C/o pain and some swelling. Denies injury. Taking 600mg ibuprofen daily w/ pain relief. - History Of Current Complaint Chief Complaint: UCGeneralIllness Stated Complaint: LEFT THIRD FINGER CONCERN Time Seen by Provider: 11/15/18 19:13 Hx Obtained From: Patient Hx Last Menstrual Period: "just had a baby 3 weeks ago" ?: No Onset/Duration: Sudden Onset, Lasting Days Severity Initially: Moderate Severity Currently: Moderate Pain Intensity: 6 Character Of Pain: Aching, Stiffness Aggravating Factor(s): Movement Alleviating Factor(s): Nothing - Allergies/Home Medications Allergies/Adverse Reactions: Allergies Allergy/AdvReac Type Severity Reaction Status Date / Time gadoteridol Allergy Nausea And Verified 11/15/18 19:09 Vomiting latex Allergy Blisters Verified 11/15/18 19:09 Home Medications: Home Medications Ibuprofen TAB* [Motrin TAB* 600 MG] 600 mg PO Q6H PRN 11/15/18 [History Confirmed 11/15/18] PMH/Surg Hx/FS Hx/Imm Hx Previously Healthy: Yes Other History Of: Hepatitis C - Surgical History Surgical History: Yes Surgery Procedure, Year, and Place: D&C 02/2013. Ovarian cyst, October 2017 - Family History Known Family History: Positive: None Negative: Cardiac Disease, Hypertension, Diabetes - Social History Alcohol Use: None Alcohol Amount: 1 drink/month Substance Use Type: None Substance Use Comment - Amount & Last Used: history of heroin abuse Smoking Status (MU): Heavy Every Day Tobacco Smoker Type: Cigarettes Amount Used/How Often: 1/2 - 1 ppd Have You Smoked in the Last Year: Yes When Did the Patient Quit Smoking/Using Tobacco: 2007 Household Exposure Type: Cigarettes - Immunization History Most Recent Influenza Vaccination: unknown Most Recent Tetanus Shot: unknown Most Recent Pneumonia Vaccination: unknown Vaccination Up to Date: Yes Review of Systems All Other Systems Reviewed And Are Negative: Yes Constitutional: Positive: Negative Skin: Positive: Negative Eyes: Positive: Negative ENT: Positive: Negative Respiratory: Positive: Negative Cardiovascular: Positive: Negative Gastrointestinal: Positive: Negative Genitourinary: Positive: Negative Motor: Positive: Negative Neurovascular: Positive: Negative Musculoskeletal: Positive: Arthralgia, Decreased ROM, Myalgia Neurological: Positive: Negative Psychological: Positive: Negative Is Patient Immunocompromised?: No Physical Exam Triage Information Reviewed: Yes Appearance: Well-Appearing, Well-Nourished, Pain Distress Vital Signs: Initial Vital Signs Temp 97.9 F 11/15/18 19:10 Pulse 69 11/15/18 19:10 Resp 16 11/15/18 19:10 BP 109/71 11/15/18 19:10 Pulse Ox 99 11/15/18 19:10 Vital Signs Reviewed: Yes Eye Exam: Normal ENT Exam: Normal Dental Exam: Normal Neck exam: Normal Respiratory Exam: Normal Respiratory: Positive: Chest non-tender, Lungs clear, Normal breath sounds Cardiovascular Exam: Normal Cardiovascular: Positive: RRR, No Murmur, Pulses Normal Abdominal Exam: Normal Bowel Sounds: Positive: Present Musculoskeletal: Positive: Strength Intact, ROM Limited @ - cant fully extend Neurological Exam: Normal Psychological Exam: Normal Skin Exam: Normal Hand/Wrist Course/Dx - Course Course Of Treatment: hx obtained, exam performed, meds reviewed, xray obtained. - Differential Dx/Diagnosis Differential Diagnosis/HQI/PQRI: Contusion, Dislocation, Fracture, Sprain, Strain, Tendonitis Provider Diagnosis: Tenosynovitis of fingers Discharge - Sign-Out/Discharge Documenting (check all that apply): Patient Departure All imaging exams completed and their final reports reviewed: No Studies - Discharge Plan Condition: Stable Disposition: HOME Prescriptions: Naproxen [Naproxen 500 mg tab] 500 mg PO BID #60 tablet Patient Education Materials: Trigger Finger (ED) Referrals: Ana Stewart PA [Primary Care Provider] - Julien Grace MD [Medical Doctor] - Additional Instructions: 1. take the anti inflammatory medication as prescribed. 2. warm water soaks daily 3. Use the splint for rest and support. 4. If not improving in the next 1-2 weeks please follow up with orthopedics. - Billing Disposition and Condition Condition: STABLE Disposition: Home
[2018-11-15] MEDS ORDERED: Naproxen TAB* 250 MG PO ONE (19:36)
== END 2018-11-15 20:07 | disposition home or self-care (01) ==
LOC: UCCORT 18:55
DX: M65.842 Other synovitis and tenosynovitis, left hand (principal); F17.210 Nicotine dependence, cigarettes, uncomplicated; Z88.8 Allergy status to other drugs, medicaments and biological substances; Z91.040 Latex allergy status
CPT/HCPCS: 73140; 99213; A9270-GY; G0463

== ENCOUNTER 2020-03-06 19:38 | Inpatient (IN) ==
[2020-03-06] MEDS ORDERED: Lactated Ringers 1000 ml BAG 1,000 ML IV ONE ×2 (19:57→21:14)
[2020-03-06 20:31] LABS: ABS Basophils 0.1 10^3/ul (0-0.2); ABS Eosinophils 0.1 10^3/ul (0-0.6); ABS Lymphocytes 1.2 10^3/ul (1.0-4.8); ABS Monocytes 0.7 10^3/ul (0-0.8); ABS Neutrophils 8.9 10^3/ul (1.5-7.7); Eosinophil % 0.8 %; Hematocrit 34 % (35-47); Hemoglobin 11.3 g/dL (12.0-16.0); Mean Corpuscular HGB Conc 33 g/dL (31-36); Mean Corpuscular Hemoglobin 25 pg (27-31); Mean Corpuscular Volume 76 fL (80-97); Platelet Count 198 10^3/uL (150-450); Red Blood Count 4.51 10^6 /uL (3.70-4.87); Red Cell Distribution Width 15 % (10-15)
[2020-03-06] MEDS ORDERED: OBEPIDURAL 250 ML EPIDURAL ONE (20:37)
[2020-03-06 21:03] LABS: Urine Benzodiazepine Screen None Detected (None Detect); Urine Cannabinoids Screen None Detected (None Detect); Urine Opiates Screen None Detected (None Detect)
[2020-03-06] MEDS ORDERED: Sodium Citrate/Citric Acid LIQ 15 ML UDC PO PRN (21:14)
[2020-03-06] MEDS ORDERED: Phenylephrine 40 mcg/mL 10mL (400mcg) SYRINGE IV PUSH PRN ×2 (21:14)
[2020-03-06] MEDS ORDERED: EPHEDrine (Pressors) 50 MG/ML VIAL IV PUSH PRN ×2 (21:14)
[2020-03-06] MEDS ORDERED: OBEPIDURAL 250 ML EPIDURAL SCH (22:00)
[2020-03-06] MEDS ORDERED: Lactated Ringers 1000 ml BAG 1,000 ML IV SCH (22:00)
[2020-03-07] MEDS ORDERED: Oxytocin in LR 20 UNITS/1,000 ML BAG IVPB SCH ×2 (07:00→10:00)
[2020-03-07] MEDS: Nicotine PATCH 14 MG/24 HR PATCH TRANSDERM SCH ×2 (07:21→09:00)
[2020-03-07] MEDS ORDERED: Glycerin ADULT 2.4 gm SUPP PR PRN (09:17)
[2020-03-07] MEDS ORDERED: Dibucaine 1% OINT 28.35 GM TUBE PR PRN (09:17)
[2020-03-07] MEDS ORDERED: Witch Hazel PAD JAR TOPICAL PRN (09:17)
[2020-03-07] MEDS ORDERED: Lactated Ringers 1000 ml BAG 1,000 ML IV SCH (10:00)
[2020-03-08 06:12] LABS: ABS Basophils 0.1 10^3/ul (0-0.2); ABS Eosinophils 0.2 10^3/ul (0-0.6); ABS Lymphocytes 2.2 10^3/ul (1.0-4.8); ABS Monocytes 0.9 10^3/ul (0-0.8); ABS Neutrophils 8.6 10^3/ul (1.5-7.7); Eosinophil % 1.5 %; Hematocrit 30 % (35-47); Hemoglobin 9.6 g/dL (12.0-16.0); Lymphocyte % 18.2 %; Mean Corpuscular HGB Conc 32 g/dL (31-36); Mean Corpuscular Hemoglobin 24 pg (27-31); Mean Corpuscular Volume 76 fL (80-97); Platelet Count 167 10^3/uL (150-450); Red Blood Count 3.94 10^6 /uL (3.70-4.87); Red Cell Distribution Width 15 % (10-15); White Blood Count 11.9 10^3/uL (3.5-10.8)
[2020-03-08] MEDS: Nicotine PATCH 14 MG/24 HR PATCH TRANSDERM SCH (08:56)
[2020-03-08 09:29] VITALS: BP 104/58
== END 2020-03-08 14:27 | disposition home or self-care (01) | DRG 807 ==
LOC: MCHOBOUT 19:38 → MCHOB 19:57
PROVIDERS: ADMIT Midwife; ATTEND Midwife

== ENCOUNTER 2022-03-18 07:42 | Inpatient (IN) ==
[2022-03-18 08:38] LABS: Urine Appearance Cloudy; Urine Bilirubin Negative (Negative); Urine Blood 1+ (Negative); Urine Color Amber; Urine Glucose Negative (Negative); Urine Ketones 1+ (Negative); Urine Nitrite Positive (Negative); Urine Protein Negative (Negative); Urine Specific Gravity 1.021 (1.002-1.030); Urine Urobilinogen Negative (Negative)
[2022-03-18 08:56] LABS: Urine Bacteria 1+ (Absent); Urine Red Blood Cell Trace(0-2/hpf) (Absent); Urine Squamous Epithelial Cell Present (Absent); Urine White Blood Cell 2+(11-20/hpf) (Absent)
[2022-03-18 08:59] LABS: Urine Benzodiazepine Screen None Detected (None Detect); Urine Cannabinoids Screen Presumptive Positive (None Detect); Urine Opiates Screen None Detected (None Detect)
[2022-03-18] MEDS ORDERED: Al Hydrox/Mg Hydrox/Simet LIQ 30 ML UDC PO PRN (11:52)
[2022-03-18 12:24] LABS: ABS Eosinophils 0.2 10^3/ul (0-0.6); ABS Lymphocytes 1.7 10^3/ul (1.0-4.8); ABS Monocytes 0.8 10^3/ul (0-0.8); ABS Neutrophils 4.8 10^3/ul (1.5-7.7); Eosinophil % 2.3 %; Hematocrit 45 % (35-47); Hemoglobin 14.9 g/dL (12.0-16.0); Lymphocyte % 23.2 %; Mean Corpuscular HGB Conc 34 g/dL (31-36); Mean Corpuscular Hemoglobin 29 pg (27-31); Mean Corpuscular Volume 86 fL (80-97); Mean Platelet Volume 8.3 fL (7.4-10.4); Nucleated Red Blood Cells % 0.1; Platelet Count 164 10^3/uL (150-450); Red Blood Count 5.19 10^6 /uL (3.70-4.87); Red Cell Distribution Width 13 % (10-15); White Blood Count 7.5 10^3/uL (3.5-10.8)
[2022-03-18 13:00] LABS: ALT 10 U/L (7-52); AST 16 U/L (13-39); Acetaminophen < 15 mcg/mL; Albumin 4.4 g/dL (3.2-5.2); Albumin/Globulin Ratio 2.1 (1-3); Alcohol, S < 13 mg/dL (<13); Alkaline Phosphatase 46 U/L (35-149); Anion Gap 7 mmol/L (2-11); Blood Urea Nitrogen 7 mg/dL (6-24); CO2 Carbon Dioxide 26 mmol/L (22-32); Calcium 9.2 mg/dL (8.6-10.3); Chloride 107 mmol/L (101-111); Globulin 2.1 g/dL (2-4); Glucose 82 mg/dL (70-100); Potassium 4.3 mmol/L (3.5-5.0); Salicylate < 2.50 mg/dL (<30); Sodium 140 mmol/L (135-145); Total Protein 6.5 g/dL (6.4-8.9)
[2022-03-18 13:05] LABS: HCG Pregnancy < 0.60 mIU/mL
[2022-03-18 13:13] LABS: TSH Ultra Thyroid Stim Horm 0.99 mcIU/mL (0.34-5.60)
[2022-03-18] MEDS ORDERED: Nicotine GUM 4MG FRUIT FLAVOR PO PRN (14:41)
[2022-03-18] MEDS ORDERED: Nicotine Lozenge mini 4 MG LOZNG.MINI MT PRN (14:42)
[2022-03-18] MEDS: Nicotine PATCH 21 MG/24 HR PATCH TRANSDERM SCH (14:49)
[2022-03-19 08:22] LABS: HDL Cholesterol 35.5 mg/dL
[2022-03-19] MEDS: Nicotine PATCH 21 MG/24 HR PATCH TRANSDERM SCH (08:34)
[2022-03-19] MEDS: Albuterol HFA INHALER 8 gm MDI INH PRN (18:18)
[2022-03-20] MEDS: Albuterol HFA INHALER 8 gm MDI INH PRN (07:55)
[2022-03-20] MEDS: Nicotine PATCH 21 MG/24 HR PATCH TRANSDERM SCH (08:30)
[2022-03-20 08:46] VITALS: BP 134/67
== END 2022-03-20 14:29 | disposition home or self-care (01) | DRG 885 ==
LOC: ED 07:42 → EDHOLD 11:52 → BSU 13:40
PROVIDERS: ADMIT Psychiatry & Neurology Psychiatry; ATTEND Psychiatry & Neurology Psychiatry